=== PATIENT | female | born 1950 ===

== ENCOUNTER 2018-06-22 16:31 | Emergency (ER) | payer OTHER ==
[~2018-06-22] VITALS: Ht 157.5 cm; Wt 59.0 kg
[~2018-06-22 16:31] MED LIST: FLONASE16 G1 NS; ZANTAC300 MG PO; ZYRTEC10 MG PO
== END 2018-06-22 20:13 | disposition home or self-care (01) ==
LOC: ER 16:31
DX: R10.12 Left upper quadrant pain (principal)